=== PATIENT | female | born 1960 | race Caucasian/White ===

== ENCOUNTER 2021-03-21 21:26 | Inpatient (IN) | payer OTHER, SELFPAY ==
[~2021-03-21] VITALS: Ht 170.2 cm; Wt 116.6 kg
[2021-03-21 21:26] VITALS: BP 141/93
--- NOTE | 2021-03-21 21:26 | NUR ---
PT BROUGHT TO BED 4 VIA [facility]
--- NOTE | 2021-03-21 21:26 | NUR ---
61 YO F BIBA C/C OF ALOC. FOUND PT UNRESPONSIVE AND BLUE GOT HER BREATHING AGAIN, PT BECAME UNREPONSIVE FOR EMS AGAIN, THEY CAPTURED A VTACH RUN, PT WAS SHOCKED 200 BOLTS. PT THEN BECAME A&0 X2 THEN UNRESPONSIVE UPON ARRIVAL TO HOSPITAL. HX:PVCs, HDL, HYPOTHYRIODISM, HTN, OVERACTIVE BLADDER RX:LEVOTHYROX, SIMVASTATIN, OXYBUTYNIN, LOSARTAN NKA
[2021-03-21] MEDS ORDERED: AMIODARONE 450 MG in DEXTROSE 5% 250 ML IV ONE (21:30)
[2021-03-21] MEDS ORDERED: AMIODARONE 150 MG in DEXTROSE 5% 100 ML IV ONE (21:30)
[2021-03-21] MEDS ORDERED: AMIODARONE 150 MG/3 ML VIAL IV ONE (21:39)
[2021-03-21 21:47] LABS: BASOPHILS % (AUTO) 0.2 % (0.0-2.0); EOSINOPHILS # (AUTO) 0.1 K/uL (0-0.4); HEMATOCRIT 41.3 % (36-48); LYMPHOCYTES # (AUTO) 4.9 K/uL (2.5-16.5); LYMPHOCYTES % (AUTO) 69.5 % (20.5-51.1); MEAN CORPUSCULAR HEMOGLOBIN 31 pg (27-31); MEAN CORPUSCULAR HGB CONC 34 g/dL (33-37); MEAN CORPUSCULAR VOLUME 90.5 fL (80-94); MONOCYTES # (AUTO) 0.3 K/uL (0.8-1.0); MONOCYTES % (AUTO) 4.7 % (1.7-9.3); NEUTROPHILS # (AUTO) 1.6 K/uL (1.8-7.7); NEUTROPHILS % (AUTO) 23.6 % (42.2-75.2); PLATELET COUNT (AUTO) 229 K/uL (140-450); RED BLOOD CELL COUNT(AUTO) 4.57 MIL/uL (4.20-5.40); RED CELL DISTRIBUTION WIDTH 12.7 % (11.6-13.7)
--- NOTE | 2021-03-21 21:47 | NUR ---
RAD AT BEDSIDE
--- NOTE | 2021-03-21 22:00 | NUR ---
PT IS AWAKE AND ALERT X2. REORIENTED TO PLACE AND PURPOSE. PT MADE COMFORTABLE. LIGHTS OFF AND GIVEN WARM BLANKETS. ALL NEEDS MET AT THIS TIME. BED LOCKED IN LOWEST POSITION, SIDE RAILX 2 FOR SAFETY.
[2021-03-21 22:04] LABS: ALBUMIN 3.6 g/dL (3.4-5.0); ANION GAP 20.1 (8-16); CARBON DIOXIDE 19.8 mmol/L (21-32); CREATININE 1.1 mg/dL (0.6-1.3); MAGNESIUM 2.1 mg/dL (1.8-2.4); PHOSPHORUS 2.6 mg/dL (2.5-4.9); TOTAL BILIRUBIN 0.4 mg/dL (0.0-1.0)
[2021-03-21 22:06] LABS: POTASSIUM 2.9 mmol/L (3.5-5.1)
[2021-03-21] MEDS ORDERED: KCL 20 MEQ/WATER INJ PREMIX 100 ML IV ONE (22:10)
[2021-03-21] MEDS ORDERED: ASPIRIN 325 MG TAB PO ONE (22:35)
--- NOTE | 2021-03-21 22:54 | NUR ---
2120 PT IN BED 8 200J SHOCK BS 182 2132 200J SHOCK 8 200 J SHOCK 2136 AMIODRONE BOLUS 2157 AMI DRIP STARTED
[2021-03-21] MEDS ORDERED: ONDANSETRON 4 MG/2 ML VIAL ONE (23:04)
[2021-03-21] MEDS ORDERED: ONDANSETRON 4 MG/2 ML VIAL IVP ONE (23:05)
[2021-03-21] MEDS ORDERED: DIT5 PO (23:18)
[2021-03-21] MEDS ORDERED: LOSA100T1 PO (23:18)
[2021-03-21] MEDS ORDERED: SIMV20TA1 PO (23:18)
[2021-03-21] MEDS ORDERED: SYN.075 PO (23:18)
--- NOTE | 2021-03-21 23:34 | NUR ---
PT HAS EYES CLOSED, OPENS TO SOUND. EQUAL RISE AND FALL OF CHEST WALL. VSS. PT IS IN STABLE CONDITION. ALL NEEDS MET AT THIS TIME. BED LOCKED IN LWEST POSITION, SIDE RAILS X2 FOR SAFETY.
--- NOTE | 2021-03-22 00:57 | NUR ---
PT REPOSTIONED TO RIGHT-SIDE LYING WITH PILLOWS PER REQUEST.
[2021-03-22] MEDS ORDERED: DEXT 5% /NACL 0.9% 1,000 ML IV ONE (02:25)
--- NOTE | 2021-03-22 03:05 | NUR ---
DR. SCHUSTER STATED FOR CRITICAL CARE MATTERS TO CONTACT . THE NUMBER WE HAVE TO IS TO A BUSINESS, THEREFORE WE ARE UNABLE TO SPEAK WITH THE DOCTOR. DR. SCHUSTER MADE AWARE, STATED TO CONTACT ICU TO SEE HOW THEY GET A HOLD OF [phone]. THE NUMBER ICU PROVIDED IS TO A DR. VILLAFANA, HE STATED HE DOESN'T EVEN KNOW ABOUT OUR HOSPITAL. CONTACTED HOUSE SUPERVISIOR FOR HELP, HE IS IN THE MIDDLE OF BREAKING MST. HE IS TRYING TO HELP HE IS ABLE TO FROM WHERE HE IS.
--- NOTE | 2021-03-22 03:09 | NUR ---
D5 5% NS 0.9% 1000MLS TO RUN AT 50ML/HR STARTED.
[2021-03-22] MEDS ORDERED: AMIODARONE 450 MG in DEXTROSE 5% 250 ML IV SCH (05:05)
--- NOTE | 2021-03-22 05:27 | NUR ---
PT'S BP DROPPED TO 84/44 HR 60, CONTACTED , ORDERS FOLLOWS STOP AMIODRONE PROTOCOL AND START MESOYMEPHRINE PER PROTOCOL. ORDERS CARRIED OUT. Addendum: 03/22/21 at 0810 by [email or web address] PT'S BP DROPPED TO 84/44 HR 60, CONTACTED , ORDERS FOLLOWS STOP AMIODRONE PROTOCOL AND START MESOYMEPHRINE PER PROTOCOL. ORDERS CARRIED OUT. PT IS IN STABLE CONDITION. DENIES SOB AND CHEST PAIN. PT IN STABLE CONDITION.
[2021-03-22] MEDS ORDERED: PHENYLEPHRINE 40 MG in NACL 0.9% 250 ML IV PRN (05:30)
--- NOTE | 2021-03-22 05:30 | NUR ---
CALLED AFTER HOURS PHARMACY FOR HELP WITH NEOSYNEPHRINE PER PROTOCOL, STATED TO HAVE AN ANOTHER NURSE HELP WELL. CALLED ICU AND SPOKE TO DEVONTE. DEVONTE INSTRUCTED ME ON HOW TO PLACE TITRATION ORDER, VERIFIED WITH MIGNON FROM PHARMACY. MIGNON STATED HE WOULD PUT THE ORDER THROUGH. TOOK ABOUT 30MINS FOR THIS PROCESS.
[2021-03-22] MEDS ORDERED: PHENYLEPHRINE 10 MG/ML VIAL ONE ×2 (05:56→06:03)
--- NOTE | 2021-03-22 07:35 | NUR ---
Pt report given to ELEANOR CARLIN. Transfer of care at this time.
--- NOTE | 2021-03-22 07:35 | NUR ---
Report and continuation of care received from ELEANOR Caldwell
[2021-03-22] MEDS ORDERED: NOREPINEPHRINE 8 MG in DEXTROSE 5% 250 ML IV PRN (08:20)
[2021-03-22] MEDS ORDERED: DOCUSATE SODIUM 100 MG GELCAP PO PRN (08:20)
[2021-03-22] MEDS ORDERED: hePARIN / DEXT 5% PREMIX 250 ML IV SCH (08:20)
[2021-03-22] MEDS ORDERED: ONDANSETRON 4 MG/2 ML VIAL IM/IVP PRN (08:20)
[2021-03-22] MEDS ORDERED: HYDROcodone/APAP 7.5/325 MG 1 TAB PO PRN (08:20)
[2021-03-22] MEDS ORDERED: POTASSIUM CHLORIDE 10 MEQ TABER PO PRN (08:20)
[2021-03-22] MEDS ORDERED: guaiFENesin DM 200/20 MG-10 ML 10 ML UDC PO PRN (08:20)
[2021-03-22] MEDS ORDERED: HEPARIN PER PHARMACY MC PRN (08:20)
--- NOTE | 2021-03-22 08:38 | NUR ---
Lab at bedside
--- NOTE | 2021-03-22 08:51 | NUR ---
Bedpan provided to patient with assistance of spouse. Pt provided with padding for R shoulder pain per request. All pt needs met.
[2021-03-22 09:00] LABS: BASOPHILS % (AUTO) 0.3 % (0.0-2.0); EOSINOPHILS % (AUTO) 0.5 % (0.0-4.0); HEMATOCRIT 33.3 % (36-48); HEMOGLOBIN 11.5 g/dL (12.0-16.0); LYMPHOCYTES % (AUTO) 24.7 % (20.5-51.1); MEAN CORPUSCULAR HEMOGLOBIN 31 pg (27-31); MEAN CORPUSCULAR HGB CONC 35 g/dL (33-37); MEAN CORPUSCULAR VOLUME 90.1 fL (80-94); MONOCYTES # (AUTO) 0.4 K/uL (0.8-1.0); MONOCYTES % (AUTO) 10.1 % (1.7-9.3); NEUTROPHILS # (AUTO) 2.7 K/uL (1.8-7.7); NEUTROPHILS % (AUTO) 64.4 % (42.2-75.2); PLATELET COUNT (AUTO) 165 K/uL (140-450); RED CELL DISTRIBUTION WIDTH 12.8 % (11.6-13.7); WHITE BLOOD COUNT (AUTO) 4.1 K/uL (4.8-10.8)
--- NOTE | 2021-03-22 09:14 | NUR ---
Dr. Arrington is evaluating patient at bedside
[2021-03-22 09:19] LABS: ANION GAP 13.3 (8-16); CARBON DIOXIDE 21.5 mmol/L (21-32); CREATININE 0.7 mg/dL (0.6-1.3); POTASSIUM 3.8 mmol/L (3.5-5.1)
[2021-03-22 09:27] LABS: CHOL/HDL RATIO 2.6 (1-4.5); FREE T4 (FREE THYROXINE) 0.86 ng/dL (0.76-1.46); MAGNESIUM 1.6 mg/dL (1.8-2.4); PHOSPHORUS 2.7 mg/dL (2.5-4.9); THYROID STIMULATING HORMONE 1.63 uIU/mL (0.34-3.74)
[2021-03-22] MEDS: LEVOTHYROXINE 0.075 MG TAB PO SCH (09:31)
[2021-03-22] MEDS: PANTOPRAZOLE 40 MG TABEC PO SCH (09:31)
[2021-03-22] MEDS: DEXT 5% /NACL 0.9% 1,000 ML IV SCH ×2 (09:50→18:23)
--- NOTE | 2021-03-22 10:22 | NUR ---
Pt resting in low-fowlers position, chucks applied. Pt resting comfortably with both eyes closed. All pt needs met. Bed locked in lowest position, side rails x 2.
[2021-03-22 10:47] LABS: APPEARANCE,URINE CLEAR (CLEAR); BILIRUBIN,URINE NEGATIVE (NEGATIVE); BLOOD, URINE NEGATIVE (NEGATIVE); COLOR,URINE YELLOW (YELLOW); LEUKOCYTE ESTERASE ,URINE TRACE (NEGATIVE); NITRITE, URINE NEGATIVE (NEGATIVE); UGLUCOSE NEGATIVE (NEGATIVE)
[2021-03-22 11:08] LABS: PROTHROMBIN TIME 10.5 secs (10.8-13.4)
[2021-03-22 11:13] LABS: BARBITURATE, URINE NEGATIVE ng/ml (NEG <=200); BENZODIAZEPINE, URINE NEGATIVE ng/mL (NEG <=200); CANNABINOID, URINE NEGATIVE ng/mL (NEG <=50); COCAINE, URINE NEGATIVE ng/mL (NEG <=300); OPIATE, URINE NEGATIVE ng/mL (NEG <=2000); PHENCYCLIDINE SCREEN,URINE NEGATIVE ng/mL (NEG <=25)
--- NOTE | 2021-03-22 12:33 | NUR ---
CT consent form signed for Angio Chest
[2021-03-22 12:53] LABS: RBC,URINE 0-5 /HPF (0-5); WBC,URINE 0-5 /HPF (0-5)
--- NOTE | 2021-03-22 13:11 | NUR ---
Dr. Muñoz is evaluating pt at bedside
--- NOTE | 2021-03-22 13:11 | NUR ---
Pt reports hx tricuspid valve regurgitation, sinus bradycardia, and allergies to amlodipine.
--- NOTE | 2021-03-22 13:25 | NUR ---
neurology technician at bedside
--- NOTE | 2021-03-22 13:26 | NUR ---
Per Dr. Muñoz, continue amiodarone drip and titrate Real-synephrine for MAP >65.
[2021-03-22] MEDS ORDERED: POTASSIUM CHLORIDE 10 MEQ TABER PO SCH (14:00)
[2021-03-22] MEDS: hePARIN / DEXT 5% PREMIX 250 ML IV SCH (15:01)
[2021-03-22] MEDS: AMIODARONE 450 MG in DEXTROSE 5% 250 ML IV SCH (15:12)
--- NOTE | 2021-03-22 15:14 | NUR ---
PATIENT HAS BEEN SCREENED AND CATEGORIZED LOW NUTRITION RISK. PATIENT WILL BE SEEN WITHIN 7 DAYS OF ADMISSION. 03/28/[address]
--- NOTE | 2021-03-22 15:36 | NUR ---
Patient transported to CT accompanied by RN; pt placed onto Telebox for transport.
--- NOTE | 2021-03-22 15:50 | NUR ---
Patient returned from CT and placed back onto residential monitor. Bed locked in lowest position, side rails x 2. at bedside.
--- NOTE | 2021-03-22 17:30 | NUR ---
Pt resting with both eyes open talking with . Denies chest pain, SOB, headache, dizziness.
--- NOTE | 2021-03-22 19:25 | NUR ---
PT REPORT RECEIVED FROM ELEANOR CARLIN FOR CONTINUITY OF PT CARE AT THIS TIME.
--- NOTE | 2021-03-22 19:25 | NUR ---
Report and transfer of care endorsed to ELEANOR Mayfield
--- NOTE | 2021-03-22 19:45 | NUR ---
PT LAYING SUPINE IN BED LOCKED IN LOWEST POSITION W X2 SIDERAILS UP FOR PT SAFETY. PT DENIES ANY PAIN OR CHEST PAIN AT THIS TIME, NO N/V/D, SOB OR OTHER SYMPTOMS. PT JEFFERSON AT 49HR BUT OTHERWISE VSS. PT RUNNING AMIODARONE AT 33ML/HR TO R AC, SOLITARIO-SYNEPHRINE PAUSED MAP OF 86, 5%-0.9NS RUNNING AT 150ML/HR TO R AC, HEPARIN DRIP RUNNING AT 10ML/HR TO L HAND. IV SITES PATENT. PT REPORTS WANTING A BOURNE CATH INSERTION D/T CONSTANT URINATION FROM OVERACTIVE BLADDER MD GALINDO MADE AWARE. PT AT BEDSIDE.
--- NOTE | 2021-03-22 19:45 | NUR ---
SOLITARIO-SYNEPHRINE PAUSED, MAP 86 BP
--- NOTE | 2021-03-22 20:55 | NUR ---
PER DR.LIN PRESTON FOR PT TO HAVE BOURNE CATH INSERTION. BOURNE CATH INSTERTED AT THIS TIME 16FR, PT TOLERATED PROCEDURE WELL. +URINE RETURN.
[2021-03-22] MEDS ORDERED: SIMVASTATIN 20 MG TAB PO SCH (21:00)
--- NOTE | 2021-03-22 22:47 | NUR ---
PTT PER LAB 54.9. NO CHANGE IN HEPARIN RATE PER PROTOCOL AT THIS TIME, MAINTAINING AT 1000 U/HR.
--- NOTE | 2021-03-22 23:41 | NUR ---
PT APPEARS TO BE RESTING W EYES CLOSED W BREATHING EVEN AND UNLABORED. VSS W HR AT 63. BED LOCKED IN LOWEST POSITION W X2 SIDERAILS UP FOR PT SAFETY. NAD NOTED, WILL CONTINUE TO MONITOR.
[2021-03-23] MEDS: DEXT 5% /NACL 0.9% 1,000 ML IV SCH ×4 (01:52→17:54)
[2021-03-23] MEDS ORDERED: AMIODARONE 150 MG/3 ML VIAL IV ONE (01:53)
--- NOTE | 2021-03-23 02:16 | NUR ---
PT ASSITED TO REPOSITION IN R LATERAL POSITION. VSS.
[2021-03-23] MEDS: AMIODARONE 450 MG in DEXTROSE 5% 250 ML IV SCH (02:20)
--- NOTE | 2021-03-23 03:55 | NUR ---
PT APPEARS TO BE RESTING W EYES CLOSED IN R LATERAL POSITION W BREATHING EVEN AND UNLABORED. VSS. BED LOCKED IN LOWEST POSITION W X2 SIDERAILS UP FOR PT SAFETY. NAD NOTED, WILL CONTINUE TO MONITOR. AMIODARONE, HEPARIN, AND 5%-0.9NS RUNNING PER ORDER/PROTOCOL.
[2021-03-23] MEDS: ACETAMINOPHEN 325 MG TAB PO PRN (05:30)
--- NOTE | 2021-03-23 06:15 | NUR ---
PT W C/O CHEST PAIN PRESSURE LIKE, SOB, + WHEEZING. VSS. MD GALINDO MADE AWARE, NO RESPONSE AT THIS TIME.
[2021-03-23] MEDS ORDERED: LEVOTHYROXINE 0.05 MG TAB ONE (06:21)
[2021-03-23 06:48] LABS: BASOPHILS % (AUTO) 0.6 % (0.0-2.0); EOSINOPHILS # (AUTO) 0.2 K/uL (0-0.4); EOSINOPHILS % (AUTO) 3.7 % (0.0-4.0); HEMATOCRIT 38.4 % (36-48); HEMOGLOBIN 13.2 g/dL (12.0-16.0); LYMPHOCYTES # (AUTO) 1.5 K/uL (2.5-16.5); LYMPHOCYTES % (AUTO) 29.8 % (20.5-51.1); MEAN CORPUSCULAR HEMOGLOBIN 31 pg (27-31); MEAN CORPUSCULAR HGB CONC 34 g/dL (33-37); MEAN CORPUSCULAR VOLUME 90.1 fL (80-94); MONOCYTES # (AUTO) 0.4 K/uL (0.8-1.0); MONOCYTES % (AUTO) 6.9 % (1.7-9.3); PLATELET COUNT (AUTO) 179 K/uL (140-450); RED BLOOD CELL COUNT(AUTO) 4.27 MIL/uL (4.20-5.40); RED CELL DISTRIBUTION WIDTH 12.9 % (11.6-13.7); WHITE BLOOD COUNT (AUTO) 5.1 K/uL (4.8-10.8)
[2021-03-23 06:52] LABS: ANION GAP 12.8 (8-16); CREATININE 0.7 mg/dL (0.6-1.3); POTASSIUM 3.8 mmol/L (3.5-5.1)
[2021-03-23] MEDS: LEVOTHYROXINE 0.075 MG TAB PO SCH (06:56)
[2021-03-23] MEDS ORDERED: NOREPINEPHRINE 4 MG/4 ML VIAL IV ONE (07:11)
--- NOTE | 2021-03-23 07:20 | NUR ---
Pt report given to ELEANOR CUMMINGS. Transfer of care at this time.
--- NOTE | 2021-03-23 07:20 | NUR ---
REPORT RECEIVED FROM CINTIA WEBSTER FOR CONTINUITY OF CARE. PT IS A&OX4. ON NASAL CANNULA 2LPM. IV SITE RT AC 20G, INFUSING AMIODARONE 0.5 MG/MIN, HEPARIN 1000 UNITS/MIN, AND D5NS 150ML/HR. SAFETY PRECAUTIONS IN PLACE. WILL CONTINUE TO MONITOR.
[2021-03-23] MEDS: ECOTRIN 81 MG TABEC PO SCH (08:23)
[2021-03-23] MEDS: ATORVASTATIN 20 MG TAB PO SCH (08:23)
[2021-03-23] MEDS: PANTOPRAZOLE 40 MG TABEC PO SCH (08:24)
--- NOTE | 2021-03-23 09:29 | NUR ---
DR SCHUSTER AT BEDSIDE EXAMINING PT
--- NOTE | 2021-03-23 10:00 | NUR ---
PT'S HEART RATE AT 41. HELD AMIODARONE AT THIS TIME.
[2021-03-23] MEDS ORDERED: POTASSIUM CHLORIDE 10 MEQ TABER PO SCH ×2 (11:30→16:30)
--- NOTE | 2021-03-23 11:30 | NUR ---
PT'S AT BEDSIDE
[2021-03-23] MEDS ORDERED: POTASSIUM CHLORIDE 10 MEQ TABER PO ONE (11:43)
--- NOTE | 2021-03-23 12:50 | NUR ---
PT CLEANED AT THIS TIME.
--- NOTE | 2021-03-23 15:31 | NUR ---
DR BROUSSARD AT BEDSIDE EXAMINING PT
[2021-03-23] MEDS ORDERED: MAG SULF 2000 MG/WATER PREMIX 50 ML IV SCH (16:00)
[2021-03-23] MEDS: hePARIN / DEXT 5% PREMIX 250 ML IV SCH (16:17)
--- NOTE | 2021-03-23 16:42 | NUR ---
DC PLANNING: ORDER RECEIVED FOR [facility] TRANSFER FOR CARDIAC CATH AND ICD PLACEMENT. 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 CM SPOKE WITH [facility], THEY STATE THEY DON'T DO EMERGENT CARDIAC CATHS AND THAT THEY SEND TO [facility] FOR THIS. SONIA SPOKE WITH THE [facility] ), CLINICALS FAXED TO THEM. RECEIVED A CALL FROM THEM TO VERIFY INFORMATION, THEY WILL CALL THE ICU OVERFLOW IF PATIENT IS TO TRANSFER AND WILL SPEAK WITH DR BROUSSARD. SONIA WILL FOLLOW FOR NEEDS. Addendum: 03/23/21 at 1652 by Serina Melgar CM DC PLANNING: ORDER FOR COVID PCR PLACED, [facility] WILL NOT ACCEPTED WITHOUT PCR RESULTS. ALSO ASKED IS PATIENTS SPOUSE PROVIDED THE [facility] POLICY NUMBER HE STATES THAT THE PATIENT WILL BE EFFECTIVE WITH THEM ON 03/26/21, CM WILL FOLLOW UP WITH THIS IN AM. SONIA WILL FOLLOW FOR NEEDS. Addendum: 03/24/21 at 1109 by Serina Melgar CM DC PLANNING: RETURN AGREEMENT FAXED TO [facility] PER THEIR REQUEST, THEY ARE WAITING FOR PCR RESULTS FOR ACCEPTANCE. WILL UPDATE THEM WITH THE PATIENTS [facility] POLICY# ONCE HER PROVIDES IT. CM WILL FOLLOW FOR NEEDS. Addendum: 03/28/21 at 1429 by Natalia Downing RN DC PLANNING: RECEIVED A CALL FROM [facility] SPOKE WITH JAMIE STATED THEY ARE ACCEPTING PATIENT NEEDS AUTHORIZATION FROM [facility] AND PCR TEST. CALLED SHERYL [phone] SPOKE WITH BAILEY SCOTT STATED THEY DON'T HAVE ANY CLINICALS, PATIENT IS COVERED STARTING Mar UPDATED PATIENT'S CLINICAL, FAXED ALL THE PAPERWORK TO [phone]. PER BAILEY ONCE SHE RECEIVE WILL REVIEW AND WILL CALL BACK FOR AUTHORIZATION. PCR IS STILL PENDING CALLED LAB SPOKE WITH AR[facility] STATED MIGHT RECEIVE IT IN LATE AFTERNOON. CM TO FOLLOW Addendum: 03/29/21 at 0917 by Serina Melgar CM DC PLANNING: PCR RESULTS FAXED TO [facility]. SONIA ALSO SPOKE WITH BAILEY AT [facility], STATES THAT AUTH NUMBER IS PENDING FOR TRANSFER, CASE IS STILL UNDER REVIEW BY [facility] FOR AUTHORIZATION FOR THE PATIENTS ADMISSION. SONIA ENDORSED THAT CLINICALS WERE FAXED YESTERDAY AND WILL FOLLOW UP WITH BAILEY LATER THIS MORNING. SONIA WILL FOLLOW FOR NEEDS. Addendum: 03/29/21 at 1201 by Serina Melgar CM DC PLANNING: SONIA CONFIRMED THAT [facility] HAS FULL DELEGATION. SONIA SPOKE TO ANNEMARIE AT [facility], CLINICAL PACKET FAXED TO HER SHE STATES THAT [facility] WILL ARRANGE FOR THE TRANSFER TO [facility] FOR AICD PLACEMENT. SONIA WILL FOLLOW UP. Addendum: 03/29/21 at 1510 by Serina Melgar CM DC PLANNING: [facility] STILL WORKING ON TRANSFER, SONIA WAS ASKED TO APPROACH DR BROUSSARD REGARDING DC'ING PATIENT ON A LIFE VEST, DR BROUSSARD FEELS THAT PATIENT NEEDS AICD PLACEMENT BEFORE DISCHARGE, [facility] WHAT JOB TITLES MEAN WILL CALL DR BROUSSARD TO DISCUSS. SONIA WILL FOLLOW. Addendum: 03/29/21 at 1729 by Serina Melgar CM DC PLANNING: SONIA SPOKE WITH HEMA AT [facility], ENDORSED THAT [facility] HAS ALL OF THE PATIENTS CLINICAL INFORMATION. SHE STATES THAT IF [facility] CAN'T PLACE THE PATIENT AT OTHER CONTRACTED HOSPITALS THAT THEY MIGHT CONSIDER [facility]. SONIA GAVE HEMA THE PHONE NUMBER TO THE NURSES STATION IN CASE PLACEMENT HAPPENS AFTER HOURS. SONIA WILL FOLLOW FOR NEEDS. Addendum: 03/30/21 at 0903 by Serina Melgar CM DC PLANNING: SONIA SPOKE WITH ANNEMARIE AT [facility], NO ACCEPTANCE AT [facility] SO FAR. CM WILL FOLLOW UP. Addendum: 03/30/21 at 1418 by Serina Melgar CM DC PLANNING: SONIA SPOKE WITH RYAN FROM THE [facility]SF[facility]AM ([phone]), CONFERENCE CALL WITH [facility]. [facility] HAS ACCEPTED THE PATIENT BUT DOESN'T HAVE A BED YET AND IS STATING THAT THEY'LL NEED ANOTHER PCR IF PATIENT DOESN'T LEAVE TODAY. CM ASKED IF THEY WOULD ACCEPT A RAPID PATIENT HAS A PCR, THEY STATE THEY WILL ASK THEIR MD. RAPID AND PCR ORDERED, CM WILL FOLLOW. Addendum: 03/31/21 at 0916 by Serina Melgar CM DC PLANNING: SONIA SPOKE WITH [facility]ER [facility], NO BEDS AND WON'T ACCEPT PATIENT WITHOUT THE NEW PCR RESULTS. ORDER FOR [facility] RECEIVED, SONIA SPOKE WITH DIANA [facility] ([phone]) AND FAXED THE REQUESTED INFORMATION. LEFT FOR CARLOS ALBERTO AT [facility] REGARDING AUTHORIZATION FOR LIFE VEST. SONIA WILL FOLLOW FOR NEEDS. Addendum: 03/31/21 at 1323 by Serina Melgar CM DC PLANNING: SONIA SPOKE WITH CARLOS ALBERTO AT [facility], AUTHORIZATION # FOR THE [facility] IS [id number]. CONTINUED HOSPITAL STAY ALSO AUTHORIZED. [facility] IS WORKING ON CARDIAC FOLLOW UP. SONIA SPOKE WITH THE PATIENT AT BEDSIDE AND GAVE HER THE CONTACT INFORMATION FOR LANCE CAMARENA HER ASSIGNED PCP. ENDORSED THAT THE [facility] IS IN PROCESS AND THAT [facility] IS WORKING ON A CARDIOLOGY FOR OP F/U. SONIA WILL FOLLOW FOR NEEDS. Addendum: 04/01/21 at 1459 by Serina Melgar CM DC PLANNING: SONIA HAS BEEN IN CONTACT WITH [facility] SEVERAL TIMES TODAY, CONFIRMED THAT THE VEST IS BEING FITTED IN THE HOSPITAL AT ABOUT 6 PM TODAY. SONIA HAS SPOKEN WITH THE PATIENT TWICE TODAY TO UPDATE HER ON THE FITTING SCHEDULE, AND NOTIFIED DR BROUSSARD OF SAME. SONIA WILL FOLLOW.
--- NOTE | 2021-03-23 17:53 | NUR ---
PT'S AT BEDSIDE
--- NOTE | 2021-03-23 18:13 | NUR ---
PT PROVIDED WITH DINNER TRAY
--- NOTE | 2021-03-23 18:32 | NUR ---
RECEIVED CALL FROM [facility] AT [place], PT HAS BEEN ACCCEPTED AND IS WATITING FOR PCR RESULTS. REQUESTING FOR RESULTS TO BE FAXED OVER WHEN RECEIVED.
--- NOTE | 2021-03-23 18:43 | NUR ---
PT USING COMMODE
--- NOTE | 2021-03-23 19:20 | NUR ---
BOURNE OUTPUT 1400 ML
--- NOTE | 2021-03-23 19:24 | NUR ---
Pt report given to EVELINA RN. Transfer of care at this time.
--- NOTE | 2021-03-23 19:24 | NUR ---
Received report from Jean-Claude WEBSTER for continuity of care.
--- NOTE | 2021-03-23 20:37 | NUR ---
changed dressing on right ac-- patient tolerated well.
--- NOTE | 2021-03-23 22:20 | NUR ---
assisted patient to a comfortable position- tolerated well. safety measures in place, attached to monitor and will continue to monitor patient. patient also asked for medication to help sleep-- will look at PRN medication
--- NOTE | 2021-03-23 23:26 | NUR ---
IV removed, catheter intact and site benign. Applied folded 4x4 gauze and tape to stop bleeding. Addendum: 03/23/21 at 2329 by [email or web address] on the right fa
[2021-03-24] MEDS: ZOLPIDEM 5 MG TAB PO PRN (00:44)
[2021-03-24] MEDS: DEXT 5% /NACL 0.9% 1,000 ML IV SCH ×4 (00:44→21:04)
--- NOTE | 2021-03-24 01:58 | NUR ---
Patient appears to be resting comfortably in bed-- low fowlers, eyes closed, and no signs of distress noted. Denies any pain. Respirations even and unlabored. Safety measures are in place, attached to the monitor, and will continue to monitor patient.
--- NOTE | 2021-03-24 03:00 | NUR ---
Patient appears to be resting comfortably in bed- low fowlers, eyes closed, fluids running. Vital Signs within normal limits. Respirations even and unlabored. No signs of distress noted. Safety measures are in place, and will continue to monitor patient.
[2021-03-24] MEDS: LEVOTHYROXINE 0.075 MG TAB PO SCH (06:26)
--- NOTE | 2021-03-24 07:19 | NUR ---
Pt report given to Jt RN and Lety WEBSTER. Transfer of care at this time.
--- NOTE | 2021-03-24 07:24 | NUR ---
emptied out rae catheter 5000ml-- mild odor, yellow, and hazy.
--- NOTE | 2021-03-24 07:30 | NUR ---
RECEIVED PT IN RNEY AOX4. DENIES PAIN OR DISCOMFORT. NSR ON MONITOR. IV INTACT AND PATENT INFUSING HEPARIN PER ORDER AND IV FLUIDS. TOLERATING WELL. F/C DRAINING TO GRAVITY. NAD. SAFETY MAINTAINED.
[2021-03-24 07:54] LABS: BASOPHILS % (AUTO) 0.7 % (0.0-2.0); EOSINOPHILS # (AUTO) 0.1 K/uL (0-0.4); EOSINOPHILS % (AUTO) 2.8 % (0.0-4.0); HEMATOCRIT 37.5 % (36-48); HEMOGLOBIN 13.1 g/dL (12.0-16.0); LYMPHOCYTES # (AUTO) 0.9 K/uL (2.5-16.5); MEAN CORPUSCULAR HEMOGLOBIN 31 pg (27-31); MEAN CORPUSCULAR HGB CONC 35 g/dL (33-37); MEAN CORPUSCULAR VOLUME 89.2 fL (80-94); MONOCYTES # (AUTO) 0.3 K/uL (0.8-1.0); MONOCYTES % (AUTO) 6.7 % (1.7-9.3); NEUTROPHILS # (AUTO) 3.4 K/uL (1.8-7.7); NEUTROPHILS % (AUTO) 70.8 % (42.2-75.2); PLATELET COUNT (AUTO) 174 K/uL (140-450); RED BLOOD CELL COUNT(AUTO) 4.21 MIL/uL (4.20-5.40); RED CELL DISTRIBUTION WIDTH 12.7 % (11.6-13.7); WHITE BLOOD COUNT (AUTO) 4.8 K/uL (4.8-10.8)
[2021-03-24 08:09] LABS: ANION GAP 12.9 (8-16); CARBON DIOXIDE 24.9 mmol/L (21-32); CREATININE 0.7 mg/dL (0.6-1.3); POTASSIUM 3.8 mmol/L (3.5-5.1)
[2021-03-24] MEDS: ATORVASTATIN 20 MG TAB PO SCH (09:00)
[2021-03-24] MEDS: ECOTRIN 81 MG TABEC PO SCH (09:00)
[2021-03-24] MEDS: PANTOPRAZOLE 40 MG TABEC PO SCH (09:00)
--- NOTE | 2021-03-24 09:40 | NUR ---
PTT 52.8 PER PROTOCOL KEEP HEPARIN AT SAME RATE.
[2021-03-24] MEDS: AMIODARONE 200 MG TAB PO SCH ×2 (11:45→21:34)
--- NOTE | 2021-03-24 12:00 | NUR ---
ADMITTING MD AT BEDSIDE FOR ASSESSMENT.
[2021-03-24] MEDS ORDERED: POTASSIUM CHLORIDE 10 MEQ TABER PO SCH (12:09)
--- NOTE | 2021-03-24 13:22 | NUR ---
TAYLOR JJ WALKED TO LAB.
[2021-03-24] MEDS ORDERED: hePARIN / DEXT 5% PREMIX 250 ML IV ONE (14:45)
--- NOTE | 2021-03-24 15:00 | NUR ---
pt resting in bed, nsr with pvcs on monitor. denies pain or discomfort iv intact and patent infusinf heparin per order. f/c draining to gravity. 800ml emptied. nad. safety maintained.
[2021-03-24] MEDS: ACETAMINOPHEN 325 MG TAB PO PRN (16:55)
--- NOTE | 2021-03-24 16:56 | NUR ---
pt c/o 09/02 headache medicated per order. pt c/o anxiety, pagfed dr baron for further orders.
[2021-03-24] MEDS ORDERED: LORazepam 0.5 MG TAB PO PRN (17:00)
--- NOTE | 2021-03-24 17:29 | NUR ---
pt medicated for anxiety per order. nad.
--- NOTE | 2021-03-24 19:15 | NUR ---
Received report from Lety WEBSTER for continuity of care.
--- NOTE | 2021-03-24 19:47 | NUR ---
assisted repositioning patient to bed-- pt tolerated well.
[2021-03-24 20:00] VITALS: BP 143/90
--- NOTE | 2021-03-24 21:53 | NUR ---
Patient will be admitted to care of Nury PAYNE. Admited to telemetry. Will go to room 106a. Belongings list completed. Report to Rajni WEBSTER.
--- NOTE | 2021-03-24 22:06 | NUR ---
patient tx to floor via rlazaro
--- NOTE | 2021-03-24 22:30 | NUR ---
RECEIVED REPORT FROM VINE PRUNER NURSE, PT IN STABLE CONDITION. PT WAS BROUGHT UP VIA GURNEY, SHE IS AOX4 ON ROOM AIR WITH IV SITE R HAND 20G. PT RUNNING NORMAL SALINE AT 150MLS/HR. ADMISSION QUESTIONS ASKED HE IS ON TELE AND DENIES PAIN ADMIT TELE STRIP IS NSR WITH PVC'S. MRSA SWAB DONE, V/S FOLLOWS: T 97.8 P 85 R 20 B/P 147/84 02 97% ON ROOM AIR. ALL ORDERED PRECAUTIONS IN PLACE.
--- NOTE | 2021-03-25 | NUR ---
PT C/O OF BURNING SENSATION WITH BOURNE CATHETER. BOURNE CATHETER CARE PROVIDED. BOURNE WAS REPOSITIONED. PT WAS ALSO PROVIDED PT WITH A SPONGE BATH AND NEW GOWN ALL OTHER REQUESTS ATTENDED BY STAFF. AWAITING NEW ORDERS FROM MD ALBARADO. FLUIDS RUNNING ORDERED ALL ORDERED PRECAUTIONS IN PLACE.
--- NOTE | 2021-03-25 01:00 | NUR ---
NEW ORDERED RECEIVED FOR PYRIDIUM FOR URINARY DISCOMFORT PT MADE AWARE OF NEW ORDERED AND SHE VERBALIZED UNDERSTANDING. 20GUAGE ON RIGHT HAND INFILTRATED NEW IV SITE 22G ON LEFT F/A PROVIDED , X1 ATTEMPT. ALL ORDERED PRECAUTIONS IN PLACE.
--- NOTE | 2021-03-25 01:30 | NUR ---
RAY HOGAN CALLED, UPDATED PT AND FAMILY REGARDING PLAN OF CARE , PT VERBALIZED UNDERSTANDING.
[2021-03-25] MEDS: DEXT 5% /NACL 0.9% 1,000 ML IV SCH ×4 (03:00→23:00)
[2021-03-25 03:04] VITALS: BP 143/90
--- NOTE | 2021-03-25 04:30 | NUR ---
PT IN BED NO C/O VOICED, FLUIDS RUNNING ORDERED V/S FOLLOWS: T 97.8 P 77 R 18 B/P 96/50 02 96% ON ROOM AIR, FLUIDS RUNNING ORDERED AND ALL ORDERED PRECAUTIONS IN PLACE.
--- NOTE | 2021-03-25 06:30 | NUR ---
PT GIVEN ORDERED SYNTHROID, EDUCATION REGARDING MEDICATION PROVIDED AT BEDSIDE.
[2021-03-25] MEDS: LEVOTHYROXINE 0.075 MG TAB PO SCH (06:54)
[2021-03-25 07:28] LABS: BASOPHILS % (AUTO) 0.5 % (0.0-2.0); EOSINOPHILS # (AUTO) 0.1 K/uL (0-0.4); EOSINOPHILS % (AUTO) 2.6 % (0.0-4.0); HEMATOCRIT 37.1 % (36-48); HEMOGLOBIN 13.3 g/dL (12.0-16.0); LYMPHOCYTES # (AUTO) 0.8 K/uL (2.5-16.5); LYMPHOCYTES % (AUTO) 14.8 % (20.5-51.1); MEAN CORPUSCULAR HEMOGLOBIN 32 pg (27-31); MEAN CORPUSCULAR HGB CONC 36 g/dL (33-37); MEAN CORPUSCULAR VOLUME 88.2 fL (80-94); MONOCYTES # (AUTO) 0.4 K/uL (0.8-1.0); MONOCYTES % (AUTO) 7.8 % (1.7-9.3); NEUTROPHILS # (AUTO) 3.9 K/uL (1.8-7.7); NEUTROPHILS % (AUTO) 74.3 % (42.2-75.2); PLATELET COUNT (AUTO) 175 K/uL (140-450); RED CELL DISTRIBUTION WIDTH 12.6 % (11.6-13.7); WHITE BLOOD COUNT (AUTO) 5.2 K/uL (4.8-10.8)
[2021-03-25 07:29] LABS: ANION GAP 11.1 (8-16); CREATININE 0.7 mg/dL (0.6-1.3); POTASSIUM 4.1 mmol/L (3.5-5.1)
[2021-03-25 08:00] VITALS: BP 125/74
--- NOTE | 2021-03-25 08:00 | NUR ---
RECEIVED REPORT FROM PM SHIFT RN FOR CONTINUITY OF CARE.PT. STABLE ,RESTING WITHOUT SIGNS OF ACUTE DISTRESS . ALL SAFETY MEASURES IN PLACED. WILL CONTINUE TO MONITOR THE PT.
[2021-03-25] MEDS: ATORVASTATIN 20 MG TAB PO SCH (09:44)
[2021-03-25] MEDS: PANTOPRAZOLE 40 MG TABEC PO SCH (09:44)
[2021-03-25] MEDS: PHENAZOPYRIDINE 100 MG TAB PO SCH ×3 (09:45→16:15)
[2021-03-25] MEDS: AMIODARONE 200 MG TAB PO SCH ×2 (09:46→21:22)
[2021-03-25] MEDS: ECOTRIN 81 MG TABEC PO SCH (09:46)
--- NOTE | 2021-03-25 10:00 | NUR ---
SCHEDULED MEDICATION WAS GIVEN . PT. TOLERATED WELL.PT. STABLE NOT IN DISTRESS. CALL LIGHT WITHIN REACH. ALL SAFETY MEASURES APPLIED. WILL CONTINUE TO MONITOR THE PT.
--- NOTE | 2021-03-25 11:00 | NUR ---
MADE ROUND. PT'S AT BEDSIDE. PT. STABLE. BREATHINGS EVEN AND UNLABORED. WILL CONTINUE TO MONITOR THE PT.
[2021-03-25 12:00] VITALS: BP 127/64
--- NOTE | 2021-03-25 14:04 | NUR ---
PT. STABLE, WITHOUT DISTRESS NOTED . WILL CONTINUE TO MONITOR THE PT.
[2021-03-25 16:00] VITALS: BP 113/64
[2021-03-25] MEDS: OXYBUTYNIN 5 MG TAB PO SCH (16:15)
--- NOTE | 2021-03-25 16:30 | NUR ---
PT. RESTING COMFORTABLY IN BED. NO S/S OF ACUTE DISTRESS NOTED. ALL SAFETY MEASURES IN PLACED. WILL CONTINUE TO MONITOR THE PT.
--- NOTE | 2021-03-25 18:49 | NUR ---
PT. STABLE ON ROOM AIR. BREATHINGS NORMAL. NOT IN DISTRESS. SAFETY MEASURES IN PLACED. WILL CONTINUE TO MONITOR THE PT.
--- NOTE | 2021-03-25 19:44 | NUR ---
REPORT GIVEN TO AWILDA OWUSU RN. PT. STABLE
[2021-03-25 20:00] VITALS: BP 111/64
[2021-03-26] VITALS: BP 132/71
[2021-03-26 04:00] VITALS: BP 108/70
[2021-03-26] MEDS: DEXT 5% /NACL 0.9% 1,000 ML IV SCH ×2 (05:50→12:20)
[2021-03-26] MEDS: LEVOTHYROXINE 0.075 MG TAB PO SCH (06:00)
[2021-03-26 08:00] VITALS: BP 110/67
[2021-03-26] MEDS: ECOTRIN 81 MG TABEC PO SCH (09:00)
[2021-03-26] MEDS: PANTOPRAZOLE 40 MG TABEC PO SCH (09:00)
[2021-03-26] MEDS: AMIODARONE 200 MG TAB PO SCH ×2 (09:00→20:40)
[2021-03-26] MEDS: OXYBUTYNIN 5 MG TAB PO SCH ×3 (09:00→17:36)
[2021-03-26] MEDS: ATORVASTATIN 20 MG TAB PO SCH (09:00)
[2021-03-26] MEDS: PHENAZOPYRIDINE 100 MG TAB PO SCH ×3 (09:00→17:36)
[2021-03-26 10:47] LABS: BASOPHILS % (AUTO) 0.5 % (0.0-2.0); EOSINOPHILS # (AUTO) 0.2 K/uL (0-0.4); EOSINOPHILS % (AUTO) 5.4 % (0.0-4.0); HEMATOCRIT 38.3 % (36-48); HEMOGLOBIN 13.2 g/dL (12.0-16.0); LYMPHOCYTES # (AUTO) 0.8 K/uL (2.5-16.5); LYMPHOCYTES % (AUTO) 18.2 % (20.5-51.1); MEAN CORPUSCULAR HEMOGLOBIN 31 pg (27-31); MEAN CORPUSCULAR HGB CONC 35 g/dL (33-37); MEAN CORPUSCULAR VOLUME 89.8 fL (80-94); MONOCYTES # (AUTO) 0.4 K/uL (0.8-1.0); MONOCYTES % (AUTO) 9.6 % (1.7-9.3); NEUTROPHILS % (AUTO) 66.3 % (42.2-75.2); PLATELET COUNT (AUTO) 187 K/uL (140-450); RED BLOOD CELL COUNT(AUTO) 4.26 MIL/uL (4.20-5.40); RED CELL DISTRIBUTION WIDTH 12.8 % (11.6-13.7); WHITE BLOOD COUNT (AUTO) 4.5 K/uL (4.8-10.8)
[2021-03-26 10:53] LABS: ANION GAP 12.5 (8-16); CARBON DIOXIDE 26.8 mmol/L (21-32); CREATININE 0.8 mg/dL (0.6-1.3); POTASSIUM 4.3 mmol/L (3.5-5.1)
[2021-03-26 10:57] LABS: MAGNESIUM 1.5 mg/dL (1.8-2.4); PHOSPHORUS 3.4 mg/dL (2.5-4.9)
[2021-03-26 12:00] VITALS: BP 136/64
[2021-03-26] MEDS ORDERED: MAG SULF 2000 MG/WATER PREMIX 50 ML IV SCH (14:00)
[2021-03-26 16:00] VITALS: BP 134/80
--- NOTE | 2021-03-26 19:40 | NUR ---
ENDORSED TO BOTTLE WASHER NURSE FOR CONTINUITY OF CARE.
--- NOTE | 2021-03-26 19:45 | NUR ---
RECEIVED REPORT FROM AM NURSE. PATIENT AWAKE RESTING IN BED. NO ACUTE DISTRESS NOTED. BREATHING EVEN UNLABORED. ON ROOM AIR. NO COMPLAINTS OF PAIN. SAFETY MEASURES IN PLACE. CALL LIGHT WITHIN REACH.
[2021-03-26 20:00] VITALS: BP 141/81
--- NOTE | 2021-03-26 20:40 | NUR ---
SCHEDULED MEDS ADMINISTERED PER MD ORDERED. NEEDS ATTENDED TO.
[2021-03-27] VITALS: BP 131/75
--- NOTE | 2021-03-27 00:02 | NUR ---
RECEIVED A CALL FROM FRANDY IN [facility]. SHE STATED THAT 2 THINGS ARE NEEDED: LETTER OF AGREEMENT AND COVID TEST RESULTS. WILL ENDORSE TO THE AM SHIFT NURSE.
[2021-03-27 04:00] VITALS: BP 122/64
--- NOTE | 2021-03-27 04:19 | NUR ---
MADE ROUNDS PATIENT IS AWAKE WATCHING MOVIE IN HER TABLET. NO SOB NOTED. RESPIRATION REGULAR UNLABORED. CALL LIGHT ON EASY REACH.
[2021-03-27] MEDS: LEVOTHYROXINE 0.075 MG TAB PO SCH (05:13)
--- NOTE | 2021-03-27 07:24 | NUR ---
RECEIVED REPORT FROM DIMENSIONAL INSPECTOR NURSE.
[2021-03-27 07:32] LABS: BASOPHILS # (AUTO) 0.1 K/uL (0.00-0.22); EOSINOPHILS # (AUTO) 0.4 K/uL (0-0.4); EOSINOPHILS % (AUTO) 6.5 % (0.0-4.0); HEMATOCRIT 35.9 % (36-48); HEMOGLOBIN 12.4 g/dL (12.0-16.0); LYMPHOCYTES # (AUTO) 1.2 K/uL (2.5-16.5); LYMPHOCYTES % (AUTO) 21.4 % (20.5-51.1); MEAN CORPUSCULAR HEMOGLOBIN 31 pg (27-31); MEAN CORPUSCULAR HGB CONC 35 g/dL (33-37); MEAN CORPUSCULAR VOLUME 90.3 fL (80-94); MONOCYTES # (AUTO) 0.6 K/uL (0.8-1.0); MONOCYTES % (AUTO) 10.8 % (1.7-9.3); NEUTROPHILS # (AUTO) 3.3 K/uL (1.8-7.7); NEUTROPHILS % (AUTO) 60.3 % (42.2-75.2); PLATELET COUNT (AUTO) 197 K/uL (140-450); RED BLOOD CELL COUNT(AUTO) 3.98 MIL/uL (4.20-5.40); RED CELL DISTRIBUTION WIDTH 13.1 % (11.6-13.7); WHITE BLOOD COUNT (AUTO) 5.4 K/uL (4.8-10.8)
--- NOTE | 2021-03-27 07:38 | NUR ---
ENDORSEMENT GIVEN TO AM NURSE FOR CONTINUITY OF CARE. PATIENT IS STABLE.
[2021-03-27 08:00] VITALS: BP 117/64
[2021-03-27 08:02] LABS: ANION GAP 11.7 (8-16); CARBON DIOXIDE 26.7 mmol/L (21-32); CREATININE 0.7 mg/dL (0.6-1.3); POTASSIUM 4.4 mmol/L (3.5-5.1)
[2021-03-27] MEDS: PANTOPRAZOLE 40 MG TABEC PO SCH (09:00)
[2021-03-27] MEDS: ATORVASTATIN 20 MG TAB PO SCH (09:00)
[2021-03-27] MEDS: OXYBUTYNIN 5 MG TAB PO SCH ×3 (09:00→16:54)
[2021-03-27] MEDS: ECOTRIN 81 MG TABEC PO SCH (09:00)
[2021-03-27] MEDS: PHENAZOPYRIDINE 100 MG TAB PO SCH ×3 (09:00→16:54)
[2021-03-27] MEDS: AMIODARONE 200 MG TAB PO SCH ×2 (09:00→21:04)
--- NOTE | 2021-03-27 10:32 | NUR ---
DISCUSSED PLAN WITH PT. WILL FOLLOW UP WITH CM AND FACILITY FOR TRANSFER INSTRUCTIONS
[2021-03-27 12:00] VITALS: BP 113/68
--- NOTE | 2021-03-27 14:20 | NUR ---
PT RESTING IN BED. NO S/S OF DISTRESS. CALL LIGHT IN REACH. ALL SAFETY MEASURES IN PLACE. BREATHING SYMMETRICAL.
[2021-03-27 16:00] VITALS: BP 112/62
--- NOTE | 2021-03-27 17:10 | NUR ---
PT FAMILY PICKED UP SOME BELONGINGS
--- NOTE | 2021-03-27 19:30 | NUR ---
ENDORSED PT TO SUSTAINABILITY OFFICER
[2021-03-27 20:00] VITALS: BP 134/62
--- NOTE | 2021-03-27 21:04 | NUR ---
DUE MEDS GIVEN ORDERED.
[2021-03-28] VITALS: BP 124/59
[2021-03-28] MEDS: ZOLPIDEM 5 MG TAB PO PRN (00:40)
--- NOTE | 2021-03-28 03:00 | NUR ---
PATIENT IS SLEEPING, NO SOB NOTED, CHEST SEEN RISE AND FALL. CALL LIGHT WITHIN REACH. SAFETY MEASURES IN PLACE.
[2021-03-28 04:00] VITALS: BP 118/60
[2021-03-28] MEDS: LEVOTHYROXINE 0.075 MG TAB PO SCH (06:00)
--- NOTE | 2021-03-28 07:40 | NUR ---
ENDORSED TO AM NURSE FOR CONTINUITY OF CARE. PATIENT IN STABLE CONDITION.
[2021-03-28 07:42] LABS: BASOPHILS % (AUTO) 0.5 % (0.0-2.0); EOSINOPHILS # (AUTO) 0.3 K/uL (0-0.4); EOSINOPHILS % (AUTO) 5.8 % (0.0-4.0); HEMATOCRIT 35.1 % (36-48); HEMOGLOBIN 12.4 g/dL (12.0-16.0); LYMPHOCYTES # (AUTO) 1.3 K/uL (2.5-16.5); LYMPHOCYTES % (AUTO) 24.5 % (20.5-51.1); MEAN CORPUSCULAR HEMOGLOBIN 31 pg (27-31); MEAN CORPUSCULAR HGB CONC 35 g/dL (33-37); MEAN CORPUSCULAR VOLUME 88.6 fL (80-94); MONOCYTES # (AUTO) 0.5 K/uL (0.8-1.0); MONOCYTES % (AUTO) 10.5 % (1.7-9.3); NEUTROPHILS % (AUTO) 58.7 % (42.2-75.2); PLATELET COUNT (AUTO) 209 K/uL (140-450); RED BLOOD CELL COUNT(AUTO) 3.96 MIL/uL (4.20-5.40); RED CELL DISTRIBUTION WIDTH 12.5 % (11.6-13.7); WHITE BLOOD COUNT (AUTO) 5.1 K/uL (4.8-10.8)
[2021-03-28 07:43] LABS: PHOSPHORUS 4.2 mg/dL (2.5-4.9)
[2021-03-28 07:46] LABS: ANION GAP 10.6 (8-16); CARBON DIOXIDE 26.3 mmol/L (21-32); CREATININE 0.8 mg/dL (0.6-1.3); POTASSIUM 3.9 mmol/L (3.5-5.1)
--- NOTE | 2021-03-28 07:46 | NUR ---
RECEIVED PATIENT FROM CAR RENTAL SALES ASSISTANT NURSE FOR CONTINUITY OF CARE. PATIENT IS A/A/O X4. RESTING IN BED, NO SIGN OF DISTRESS NOTED. RESPIRATORY EVEN AND UNLABORED, ON ROOM AIR. SKIN WARM, DRY, NON DIAPHORETIC. IV ON LEFT FA 24G, INTACT AND PATENT, SALINE LOCK. PATIENT DENIES ANY PAIN OR DISCOMFORT. ABLE TO MAKE NEED KNOWN. PLAN OF CARE DISCUSSED, PATIENT VERBALIZED UNDERSTANDING. PRECAUTION IN PLACE. CALL LIGHT WITHIN REACH. WILL CONTINUE TO MONITOR.
[2021-03-28 08:00] VITALS: BP 116/59
[2021-03-28] MEDS: PANTOPRAZOLE 40 MG TABEC PO SCH (10:00)
[2021-03-28] MEDS: OXYBUTYNIN 5 MG TAB PO SCH ×3 (10:00→17:43)
[2021-03-28] MEDS: AMIODARONE 200 MG TAB PO SCH ×2 (10:00→22:06)
[2021-03-28] MEDS: ATORVASTATIN 20 MG TAB PO SCH (10:00)
[2021-03-28] MEDS: ECOTRIN 81 MG TABEC PO SCH (10:00)
--- NOTE | 2021-03-28 10:00 | NUR ---
SCHEDULE MEDICATIONS GIVEN WITH EDUCATION, PATIENT VERBALIZED UNDERSTANDING. PATIENT TOLERATED WELL. PRECAUTION IN PLACE. CALL LIGHT WITHIN REACH. WILL CONTINUE TO MONITOR.
[2021-03-28 12:00] VITALS: BP 130/87
--- NOTE | 2021-03-28 12:40 | NUR ---
RECEIVED CALL FROM SUCTION DRUM DRIER OPERATOR FROM [facility], PATIENT CONDITION UPDATED. WILL CONTINUE TO FOLLOW UP.
--- NOTE | 2021-03-28 13:18 | NUR ---
SCHEDULE MEDICATION GIVEN WITH EDUCATION, PATIENT VERBALIZED UNDERSTANDING. PATIENT TOLERATED WELL. NO SIGN OF DISTRESS NOTED. PRECAUTION IN PLACE. CALL LIGHT WITHIN REACH. WILL CONTINUE TO MONITOR.
[2021-03-28 16:00] VITALS: BP 127/69
--- NOTE | 2021-03-28 17:27 | NUR ---
03/28/2021 RD INITIAL ASSESSMENT COMPLETED PLEASE REFER TO NUTRITION ASSESSMENT UNDER CARE ACTIVITY FOR ESTIMATED NUTRITIONAL NEEDS. CONTINUE CURRENT DIET ORDERED RD TO FOLLOW-UP IN 5-7 DAYS PATIENT IS LOW RISK. RY[address]
--- NOTE | 2021-03-28 19:30 | NUR ---
RECEIVED REPORT FROM RN DAYSHIFT NURSE AT BEDSIDE FOR CONTINUITY OF CARE, PT IN STABLE CONDITION. PT LYING IN BED SHE IS AOX4 ON ROOM AIR WITH A LEFT F/A 24 GUAGE INTACT AND SALINE LOCKED. SHE DENIES ANY PAIN, ALL UNIVERSAL FALLS PRECAUTIONS IN PLACE.
--- NOTE | 2021-03-28 19:30 | NUR ---
RECEIVED REPORT FROM ELEANOR SON FOR CONTINUITY OF CARE, PT IN STABLE CONDITION. SHE IS AOX4 ON ROOM AIR. NO C/O OF PAIN OR DISTRESS. ALL UNIVERSAL FALLS PRECAUTIONS IN PLACE. Addendum: 03/29/21 at 2043 by Rajni Dallas RN WRONG DATE
--- NOTE | 2021-03-28 19:30 | NUR ---
ENDORSED PATIENT TO FIRE PROTECTION SPECIALIST NURSE FOR CONTINUITY OF CARE. PATIENT IS STABLE.
[2021-03-28 20:00] VITALS: BP 128/75
--- NOTE | 2021-03-28 20:00 | NUR ---
PT LYING IN BED V/S FOLLOWS: T 97.8 P 69 R 18 B/P 128/75 02 96% ON R/A.
--- NOTE | 2021-03-28 21:50 | NUR ---
PT GIVEN SCHEDULED AMIODARONE 2 TABLETS ORDERED. EDUCATION REGARDING MEDICATION PROVIDED AT BEDSIDE, PT VERBALIZED UNDERSTANDING. SHE DENIES ANY PAIN OR DISCOMFORT. REVIEWED PLAN OF CARE, PT VERBALIZED UNDERSTANDING. ALL UNIVERSAL FALLS PRECAUTIONS IN PLACE.
[2021-03-29] VITALS: BP 108/42
--- NOTE | 2021-03-29 | NUR ---
PT IN BED RESTING WITH EYES CLOSED BUT AROUSABLE TO NAME AND LIGHT TOUCH , SHE DENIES ANY PAIN , V/S FOLLOWS: T 97.0 P 59 R 17 B/P 108/42 02 95% ON ROOM AIR. PT IS NSR WITH INVERTED T ON THE TELE.ALL UNIVERSAL FALLS PRECAUTIONS IN PLACE.
[2021-03-29 04:00] VITALS: BP 126/56
--- NOTE | 2021-03-29 06:35 | NUR ---
PT GIVEN ORDERED SYNTHROID, PT VERBALIZED ACKNOWLEDGMENT OF PURPOSE OF SYNTHROID. ALL UNIVERSAL FALLS PRECAUTIONS IN PLACE.
[2021-03-29] MEDS: LEVOTHYROXINE 0.075 MG TAB PO SCH (06:42)
--- NOTE | 2021-03-29 07:20 | NUR ---
RECEIVED PATIENT FROM VTC TECHNICIAN NURSE FOR CONTINUITY OF CARE. PATIENT IS RESTING IN BED, A/A/O X4. RESPIRATORY EVEN AND UNLABORED, ON ROOM AIR. NO SIGN OF DISTRESS NOTED. ON TELE MONITOR. SKIN WARM, DRY, NON DIAPHORETIC. IV ON LEFT FA 24G, INTACT AND PATENT, SALINE LOCK. PATIENT DENIES ANY PAIN OR DISCOMFORT. ABLE TO MAKE NEED KNOWN. PLAN OF CARE DISCUSSED, PATIENT VERBALIZED UNDERSTANDING. CALL LIGHT WITHIN REACH. WILL CONTINUE TO MONITOR.
[2021-03-29 07:27] LABS: BASOPHILS % (AUTO) 0.6 % (0.0-2.0); EOSINOPHILS # (AUTO) 0.3 K/uL (0-0.4); EOSINOPHILS % (AUTO) 4.9 % (0.0-4.0); HEMATOCRIT 36.4 % (36-48); HEMOGLOBIN 12.8 g/dL (12.0-16.0); LYMPHOCYTES # (AUTO) 1.4 K/uL (2.5-16.5); LYMPHOCYTES % (AUTO) 26.7 % (20.5-51.1); MEAN CORPUSCULAR HEMOGLOBIN 31 pg (27-31); MEAN CORPUSCULAR HGB CONC 35 g/dL (33-37); MEAN CORPUSCULAR VOLUME 88.6 fL (80-94); MONOCYTES # (AUTO) 0.6 K/uL (0.8-1.0); MONOCYTES % (AUTO) 10.7 % (1.7-9.3); NEUTROPHILS % (AUTO) 57.1 % (42.2-75.2); PLATELET COUNT (AUTO) 217 K/uL (140-450); RED BLOOD CELL COUNT(AUTO) 4.11 MIL/uL (4.20-5.40); RED CELL DISTRIBUTION WIDTH 12.7 % (11.6-13.7); WHITE BLOOD COUNT (AUTO) 5.3 K/uL (4.8-10.8)
[2021-03-29 08:00] VITALS: BP 141/75
[2021-03-29] MEDS: ATORVASTATIN 20 MG TAB PO SCH (08:40)
[2021-03-29] MEDS: PANTOPRAZOLE 40 MG TABEC PO SCH (08:40)
[2021-03-29] MEDS: OXYBUTYNIN 5 MG TAB PO SCH ×3 (08:40→17:50)
[2021-03-29] MEDS: AMIODARONE 200 MG TAB PO SCH ×2 (08:40→21:22)
[2021-03-29] MEDS: ECOTRIN 81 MG TABEC PO SCH (08:41)
--- NOTE | 2021-03-29 08:44 | NUR ---
SCHEDULE MEDICATIONS GIVEN WITH EDUCATION, PATIENT VERBALIZED UNDERSTANDING. PATIENT TOLERATED WELL. CALL LIGHT WITHIN REACH. WILL CONTINUE TO MONITOR.
[2021-03-29 09:42] LABS: ANION GAP 13.3 (8-16); CARBON DIOXIDE 27.1 mmol/L (21-32); CREATININE 0.8 mg/dL (0.6-1.3); POTASSIUM 4.4 mmol/L (3.5-5.1)
[2021-03-29 09:46] LABS: MAGNESIUM 2.1 mg/dL (1.8-2.4); PHOSPHORUS 4.3 mg/dL (2.5-4.9)
--- NOTE | 2021-03-29 10:31 | NUR ---
PATIENT IS WAKE, EATING BREAKFAST, NO SIGN OF DISTRESS NOTED. CALL LIGHT WITHIN REACH. WILL CONTINUE TO MONITOR.
--- NOTE | 2021-03-29 12:15 | NUR ---
DELIVER PATIENT BELONGING THAT DROP OFF BY FAMILY MEMBER. PATIENT IS WAKE, RESTING IN BED, NO SIGN OF DISTRESS NOTED. CALL LIGHT WITHIN REACH. WILL CONTINUE TO MONITOR.
[2021-03-29 13:14] VITALS: BP 141/63
--- NOTE | 2021-03-29 14:20 | NUR ---
PATIENT IS WAKE, RESTING IN BED, NO SIGN OF DISTRESS NOTED. CALL LIGHT WITHIN REACH. WILL CONTINUE TO MONITOR.
[2021-03-29 16:00] VITALS: BP 128/62
--- NOTE | 2021-03-29 17:50 | NUR ---
SCHEDULE MEDICATION GIVEN WITH EDUCATION, PATIENT VERBALIZED UNDERSTANDING. PATIENT TOLERATED WELL. CALL LIGHT WITHIN REACH. WILL CONTINUE TO MONITOR.
--- NOTE | 2021-03-29 19:10 | NUR ---
ENDORSED PATIENT TO PHARMACEUTICAL SALESPERSON NURSE FOR CONTINUITY OF CARE. PATIENT IS STABLE.
[2021-03-29 20:00] VITALS: BP 131/71
--- NOTE | 2021-03-29 20:00 | NUR ---
RECEIVED REPORT FROM ELEANOR SON AT BEDSIDE FOR CONTINUITY OF CARE, PT IN STABLE CONDITION. SHE IS SITTING UP IN BED AOX4 RESPIRATIONS EVEN AND UNLABORED ON ROOM AIR. PT DENIES ANY PAIN V/S FOLLOWS: T 98.3 P 76 R 19 B/P 131/71 02 93% ON ROOM AIR. ALL UNIVERSAL FALLS PRECAUTIONS IN PLACE.
--- NOTE | 2021-03-29 21:00 | NUR ---
MARILYN FROM [facility] CALLED REGARDING PLACEMENT FOR PT. SHE SAID THAT PT WAS ACCEPTED TO [facility] TO THE TELE UNIT. HOWEVER, THERE IS NO AVAILABLE BED AT THIS TIME. SHE WILL CALL US BACK WITH A BED WHEN ONE BECOMES AVAILABLE AND TRANSPORT MOST LIKELY [facility] WILL PLACED ON WILL CALL FOR TRANSPORT WHEN BED BECOMES AVAILABLE. PT WAS UP DATED REGARDING TRANSFER TO HIGHER LEVEL OF CARE, SHE VERBALIZED ACKNOWLEDGEMENT. PT B/P RETAKEN DUE TO ADMINISTRATION OF CORDARONE, B/P WAS 121/68 02 99% ON ROOM AIR PULSE 64. PT GIVEN ORDERED MEDICATION. EDUCATION REGARDING MEDICATION PROVIDED AT BEDSIDE, PT VERBALIZED UNDERSTANDING. ALL UNIVERSAL FALLS PRECAUTIONS IN PLACE.
[2021-03-30] VITALS: BP 120/69
--- NOTE | 2021-03-30 | NUR ---
PT IN BED RESTING NO C/O VOICED V/S FOLLOWS: T 98.1 P 69 R 18 B/P 120/69 02 93% ON ROOM AIR. PT HAS NO S/S OF PAIN OR DISTRESS NOTED. ALL UNIVERSAL FALLS PRECAUTIONS IN PLACE. ALL REQUESTED NEEDS ATTENDED BY STAFF.
[2021-03-30 04:00] VITALS: BP 112/68
--- NOTE | 2021-03-30 04:00 | NUR ---
PT IN BED UP TO TOILET AND BACK NO C/O VOICED V/S FOLLOWS: T 98.5 P 66 R 15 B/P 112/68 02 94% ON ROOM AIR.
[2021-03-30] MEDS: LEVOTHYROXINE 0.075 MG TAB PO SCH (06:58)
--- NOTE | 2021-03-30 07:30 | NUR ---
RECEIVED REPORT FROM DISCIPLINARY HEARING OFFICER NURSE FOR CONTINUITY OF CARE. PT IN BED, ALERT AND AWAKE. RESPIRATION EVEN AND UNLABORED. DENIES PAIN AT THIS TIME. CALL LIGHT PLACED WITHIN REACH. ALL SAFETY MEASURES IN PLACE.
[2021-03-30 07:39] LABS: PHOSPHORUS 3.8 mg/dL (2.5-4.9)
[2021-03-30 08:00] VITALS: BP 135/61
[2021-03-30] MEDS: PANTOPRAZOLE 40 MG TABEC PO SCH (08:35)
[2021-03-30] MEDS: OXYBUTYNIN 5 MG TAB PO SCH ×3 (08:35→17:00)
[2021-03-30] MEDS: ATORVASTATIN 20 MG TAB PO SCH (08:35)
[2021-03-30] MEDS: ECOTRIN 81 MG TABEC PO SCH (08:35)
[2021-03-30] MEDS: AMIODARONE 200 MG TAB PO SCH ×2 (08:37→23:11)
--- NOTE | 2021-03-30 10:36 | NUR ---
PT IS AWAKE, A/O X4. RESPIRATION EVEN AND UNLABORED. AFEBRILE. DENIES PAIN OR DISCOMFORT AT THIS TIME. AMBULATORY WITH STEADY GAIT. ALL DUE AM MEDS GIVEN PER MD ORDER. PT ASSISTED TO SHOWER. ALL SAFETY MEASURES IN PLACE. WILL CONTINUE TO MONITOR.
[2021-03-30 12:00] VITALS: BP 120/66
--- NOTE | 2021-03-30 13:30 | NUR ---
PT IN BED, AWAKE. BREATHING EVEN AND UNLABORED. AMBULATORY WITH STEADY GAIT. CONTINENT ON BOTH BOWEL AND BLADDER FUNCTIONS. DENIES PAIN AT THIS TIME. SCHEDULED MEDS GIVEN PER MD ORDER. ALL SAFETY MEASURES IN PLACE. WILL CONTINUE TO MONITOR
[2021-03-30 16:00] VITALS: BP 121/64
--- NOTE | 2021-03-30 16:25 | NUR ---
PT RESTING IN BED. DENIES PAIN AT THIS TIME. BREATHING SYMMETRICAL. CALL LIGHT WIHTIN REACH. ALL SAFETY MEASURES IN PLACE. WILL CONTINUE TO MONITOR.
--- NOTE | 2021-03-30 19:37 | NUR ---
ENDORSED PT TO HARDWARE ASSEMBLER NURSE
--- NOTE | 2021-03-30 19:38 | NUR ---
RECD. RESTING IN BED, AWAKE, A/OX4. RESPIRATION EVEN AND UNLABORED. PLEASANT AND COOPERATIVE. WATCHING TV. IV SALINE LOCK AT THE LEFT FOREARM G24, PATENT AND INTACT. USES BSC BUT ABLE TO AMBULATE TO GO TO THE BR TO VOID. DENIES PAIN 0/10.
--- NOTE | 2021-03-30 21:45 | NUR ---
SCHEDULED AMIODARONE NOT GIVEN BUT WILL CALL MD PER SUGGESTION OF INSTRUCTIONAL AIDE BOBBIE, PATIENT RHYTHM ON THE TELE MONITOR IS SINUS RHYTHM.
--- NOTE | 2021-03-30 23:05 | NUR ---
INFORMED DR. WESLY BROUSSARD, PATIENT HAS BEEN SINUS RHYTHM THIS DAY AND HR - 62 - 72. IF AMIODARONE 200 MG. CAN ST1LL BE GIVEN. STATED IT SHOULD BE GIVEN.
[2021-03-31] VITALS: BP 110/48
--- NOTE | 2021-03-31 | NUR ---
RESTING IN BED, VS STABLE. HR -64, BP - 110/48. AWARE THAT SHE IS NPO FROM NOW ON DUE TO SCHEDULED [place] TOMORROW. VERBALIZED UNDERSTANDING.
--- NOTE | 2021-03-31 02:00 | NUR ---
SLEEPING COMFORTABLY, RESPIRATION EVEN AND UNLABORED. CALL LIGHT IN REACH.
--- NOTE | 2021-03-31 02:49 | NUR ---
Patient's Plan of Care was discussed and reviewed with RN TELEMETRY: JAQUELINE ABDUL
[2021-03-31 04:00] VITALS: BP 92/48
--- NOTE | 2021-03-31 04:00 | NUR ---
SINUS BRADYCARDIA ON TELEMONITORING, HR - 57. ASYMPTOMATIC. STILL SLEEPING COMFORTABLY ON HER RIGHT SIDE.
[2021-03-31] MEDS: LEVOTHYROXINE 0.075 MG TAB PO SCH (06:00)
--- NOTE | 2021-03-31 06:30 | NUR ---
AWAKE IN BED. ABLE TO SLEEP WELL. NO COMPLAINT OF CHEST PAIN DURING THE SHIFT. WILL ENDORSE TO AM SHIFT NURSE FOR CONTINUITY OF CARE.
--- NOTE | 2021-03-31 07:30 | NUR ---
RECEIVED REPORT FROM HEALTHCARE ADMINISTRATION INTERN NURSE FOR CONTINUITY OF CARE. PT IN BED, AWAKE. BREATHING SYMMETRICAL ON ROOM AIR. NO DISTRESS NOTED AT THIS TIME. DENIES PAIN AT THIS TIME. CALL LIGHT WITHIN REACH. ALL SAFETY MEASURES IN PLACE.
--- NOTE | 2021-03-31 08:20 | NUR ---
PT TAKEN FOR [facility], IN STABLE CONDITION, NO DISTRESS NOTED AT THIS TIME.
[2021-03-31] MEDS ORDERED: REGADENOSON 0.4 MG/5 ML SYR IV SCH (08:55)
[2021-03-31] MEDS: ATORVASTATIN 20 MG TAB PO SCH (09:00)
[2021-03-31] MEDS: ECOTRIN 81 MG TABEC PO SCH (09:00)
[2021-03-31] MEDS: PANTOPRAZOLE 40 MG TABEC PO SCH (09:00)
[2021-03-31] MEDS: AMIODARONE 200 MG TAB PO SCH ×2 (09:00→20:24)
[2021-03-31] MEDS: OXYBUTYNIN 5 MG TAB PO SCH ×3 (09:00→17:29)
--- NOTE | 2021-03-31 11:30 | NUR ---
PT RETURNED FROM [facility]. PT TO DC HOME TODAY WITH [facility] PER SLAB TRIPPER.
[2021-03-31 12:00] VITALS: BP 127/71
--- NOTE | 2021-03-31 12:51 | NUR ---
SCHEDULE MEDICATION GIVEN PER MD ORDER. PT IN BED, AWAKE. BREATHING SYMMETRICAL. NO C/O PAIN OR DISCOMFORT. IN NO DISTRESS AT THIS TIME. CALL LIGHT WITHIN EASY REACH.
--- NOTE | 2021-03-31 15:31 | NUR ---
PT IN BED, ALERT AND AWAKE. RESPIRATION EVEN AND UNLABORED. BREATHING SYMMETRICAL. DENIES PAIN OR DISCOMFORT. AT BEDSIDE DOING VISIT. CALL LIGHT WITHIN REACH. ALL SAFETY MEASURES IN PLACE.
[2021-03-31 16:00] VITALS: BP 116/62
--- NOTE | 2021-03-31 17:35 | NUR ---
PT AWAKE IN BED. NO DISTRESS NOTED. BREATHING SYMMETRICAL. NO C/O PAIN. AT BEDSIDE.
[2021-03-31] MEDS ORDERED: ASPI-1856 PO (18:19)
[2021-03-31] MEDS ORDERED: AMIO200T10 PO (18:19)
--- NOTE | 2021-03-31 19:35 | NUR ---
ENDORSED TO STOCK TAKER NURSE. PT IN STABLE CONDITION.
[2021-03-31 20:00] VITALS: BP 147/75
--- NOTE | 2021-03-31 20:00 | NUR ---
RECEIVED BEDSIDE REPORT FROM DAY RN FOR CONTINUITY OF CARE. PATIENT A/A/OX4, SITTING UP IN BED ON THE PHONE WITH HER FAMILY. PATIENT DENIES CHEST PAIN, PALPITATIONS AND DIZZINESS. LEFT HAND 22 GAUGE IV NOT PATENT, LEAKING. WILL DC AND PLACE A NEW IV. PT MADE AWARE OF IT AND VERBALIZED UNDERSTANDING. DISCUSSED POC WITH THE PT AND VERBALIZED UNDERSTANDING. VSS, AFEBRILE, SATING 98% ON RA. SINUS RHYTHM ON FURNACE FEEDER, HR-60. CALL LIGHT WITHIN REACH. WILL CONTINUE POC AND MONITORING.
--- NOTE | 2021-03-31 20:30 | NUR ---
PLACED A NEW IV ON THE PATIENT LEFT HAND GAUGE 22. PT TOLERATED IT WELL. DC/D THE IV ON THE LEFT HAND,NOT PATENT, LEAKING. CANNULA INTACT.
--- NOTE | 2021-03-31 22:00 | NUR ---
ALL DUE MEDS GIVEN AND PT TOLERATED IT WELL. NO ADVERSE DRUG REACTION NOTED. WILL CONTINUE POC AND OBSERVATION.
[2021-04-01] VITALS: BP 115/61
--- NOTE | 2021-04-01 | NUR ---
PT VITAL SIGNS STABLE, AFEBRILE, SATING 97% ON RA. SB WITH BIPHASIC T WAVE ON TELE MONITOR, HR-57. NOT IN ANY DISTRESS AND NO COMPLAIN OF PAIN AT THIS TIME. CALL LIGHT WITHIN REACH. WILL CONTINUE OBSERVATION.
--- NOTE | 2021-04-01 02:14 | NUR ---
PATIENT ASLEEP AT THIS TIME. VISIBLE CHEST RISE AND FALL NOTED. SAFETY MEASURES IN PLACED. WILL CONTINUE OBSERVATION.
[2021-04-01 04:00] VITALS: BP 109/55
--- NOTE | 2021-04-01 04:00 | NUR ---
PT VITAL SIGNS STABLE, AFEBRILE, SATING 96% ON RA. SB WITH BIPHASIC T WAVE ON TELE MONITOR, HR-58. NOT IN ANY DISTRESS AND NO COMPLAIN OF PAIN AT THIS TIME. CALL LIGHT WITHIN REACH. WILL CONTINUE OBSERVATION.
[2021-04-01] MEDS: LEVOTHYROXINE 0.075 MG TAB PO SCH (05:50)
--- NOTE | 2021-04-01 06:18 | NUR ---
NO ACUTE EVENT THROUGHOUT THE NIGHT. PATIENT STABLE AND NOT IN ANY DISTRESS. NO COMPLAIN AT THIS TIME. ALL NEEDS ATTENDED. CALL LIGHT WITHIN REACH. WILL ENDORSE THE PATIENT TO THE ONCOMING RN FOR CONTINUITY OF CARE.
--- NOTE | 2021-04-01 07:29 | NUR ---
PT HAS BEEN ENDORSED BY ORTHODONTIST NURSE FOR CONTINUITY OF CARE, POC DISCUSSED. PT IS ASLEEP IN BED WITH CHEST RISING AND FALLING EVEN AND UNLABORED ON ROOM AIR. PT HAS A LEFT HAND 22G ON TELE MONITOR SHOWING SR. ALL SAFETY MEASURES IN PLACE, CALL LIGHT WITHIN REACH. WILL CONTINUE TO MONITOR.
--- NOTE | 2021-04-01 07:30 | NUR ---
ENDORSED PT TO DAY RN FOR CONTINUITY OF CARE. PATIENT STABLE. SIGNING OFF.
[2021-04-01 08:00] VITALS: BP 112/54
[2021-04-01] MEDS: AMIODARONE 200 MG TAB PO SCH (09:36)
[2021-04-01] MEDS: ATORVASTATIN 20 MG TAB PO SCH (09:36)
[2021-04-01] MEDS: OXYBUTYNIN 5 MG TAB PO SCH ×3 (09:36→17:35)
[2021-04-01] MEDS: PANTOPRAZOLE 40 MG TABEC PO SCH (09:36)
[2021-04-01] MEDS: ECOTRIN 81 MG TABEC PO SCH (09:37)
--- NOTE | 2021-04-01 09:41 | NUR ---
[facility] MEDICATION ADMINISTERED PER MD ORDER, PT EDUCATION PROVIDED AND PT VERBALIZED UNDERSTANDING. ALL OF PTS QUESTIONS HAS BEEN ANSWERED. COMMUNICATION BOARD UPDATED. PT SITTING UP IN BED, DENIES CHEST PAIN, ON RA WITH CHEST RISING AND FALLING EVEN AND UNLABORED. PT REPORTS ALL NEEDS MET, HAS CALL LIGHT WITHIN REACH. ALL SAFETY MEASURES IN PLACE. WILL CONTINUE TO MONITOR.
--- NOTE | 2021-04-01 10:37 | NUR ---
PT IS STABLE IN BED WITH NO ACUTE S/S OF DISTRESS. ALL NEEDS CURRENTLY MET. WILL CONTINUE TO MONITOR.
[2021-04-01 12:00] VITALS: BP 122/40
--- NOTE | 2021-04-01 12:00 | NUR ---
[facility] MEDICATION ADMINISTERED PER MD ORDER, PT TOLERATED AMDINISTRATION
[2021-04-01 16:00] VITALS: BP 122/40
--- NOTE | 2021-04-01 17:28 | NUR ---
[facility] MEDICATION ADMINISTERED PER MD ORDER, PT TOLERATED ADMINISTRATION.
--- NOTE | 2021-04-01 18:40 | NUR ---
FULL DISCHARGE INSTRUCTION GIVEN TO PT AND . ALL QUESTIONS ANSWERED. PT CALLED PHARMACY TO VERIFY MEDICATION IS READY FOR CREDIT PRODUCTS OFFICER. LIFE [employer]ST PERSONNEL AT BEDSIDE TO FIT PATIENT AND EDUCATION. IV REMOVED AND ALL BELONGINGS AT BEDSIDE.
--- NOTE | 2021-04-01 19:14 | NUR ---
PT LEFT WITH AT SIDE HOME AFTER [employer] FITTING. ALL QUESTIONS HAS BEEN ANSWERED AND PT IS STABLE. ALL BELONGINGS IN HAND.
== END 2021-04-01 18:55 | disposition short-term general hospital (02) | DRG 308 ==
LOC: MED 21:26 → MTU 03-22 02:28
PROVIDERS: ADMIT Hospitalist; ATTEND Hospitalist
DX: I47.2 Ventricular tachycardia (principal); G93.41 Metabolic encephalopathy; I50.43 Acute on chronic combined systolic (congestive) and diastolic (congestive) heart failure; I42.9 Cardiomyopathy, unspecified; N39.0 Urinary tract infection, site not specified; E87.0 Hyperosmolality and hypernatremia; I24.9 Acute ischemic heart disease, unspecified; E87.6 Hypokalemia; E83.42 Hypomagnesemia; R73.03 Prediabetes; I11.0 Hypertensive heart disease with heart failure; E03.9 Hypothyroidism, unspecified; E86.0 Dehydration; I25.10 Atherosclerotic heart disease of native coronary artery without angina pectoris; Z20.822 Contact with and (suspected) exposure to COVID-19; R74.01 Elevation of levels of liver transaminase levels; Z90.49 Acquired absence of other specified parts of digestive tract; Z87.891 Personal history of nicotine dependence; Z98.891 History of uterine scar from previous surgery
CPT/HCPCS: 36415; 70450; 71045; 71275; 80048; 80053; 80305; 81001; 82150; 83036; 83690; 83735; 83880; 84100; 84436; 84439; 84443; 84479; 84484; 85025; 85379; 85610; 85730; 87040; 87081; 93017; 96365; 96368; 99291; A9500; A9502; J0282; J0696; J1644; J2370; J2405; J2785; J3475; J3480; J3490; J7060; Q0092; Q9967; U0003